=== PATIENT | female | born 2000 | race Two or more races ===

== ENCOUNTER 2021-10-14 20:45 | Emergency (ER) | payer OTHER, SELFPAY ==
--- NOTE | ~2021-10-14 | CT_ITS ---
EXAMINATION: CT HEAD WITHOUT CONTRAST CLINICAL INFORMATION: Headache for 3 days. Lightheaded. COMPARISON: None. TECHNIQUE: Contiguous axial imaging was performed from the skull base to vertex without intravenous contrast. This CT examination was performed using dose optimization techniques as appropriate, variously including the following: * Automated exposure control * Adjustment of mA and/or kV according to patient size (this includes techniques or standardized protocols for targeted exams where dose is matched to indication/reason for exam; i.e. extremities or head) Use of iterative reconstruction technique DLP: 612 mGy-cm. FINDINGS: There is no evidence of acute intracranial hemorrhage or territorial infarction. No abnormal mass effect or midline shift is seen. Angel to white matter differentiation is well preserved. No extra-axial fluid collections are identified. No hydrocephalus. No significant volume loss. There is no abnormal attenuation within the brain parenchyma. The osseous structures and soft tissues are normal. The mastoid air cells and visualized portions of the paranasal sinuses are well aerated. CT/CT head/brain wo con IMPRESSION: No acute intracranial pathology.
[2021-10-14 22:02] VITALS: BP 112/74; PULSE 70; RESP 18; TEMP 37; O2SAT 99; BMI 33.0
--- NOTE | 2021-10-15 01:13 | ED.HA ---
HPI - Headache General Chief Complaint: Headache Stated Complaint: migraine Time Seen by Provider: 10/15/21 00:28 Source: patient Mode of arrival: ambulatory History of Present Illness HPI Narrative: 21-year-old female with no significant past medical history presenting to the ED complaining of headache since waking yesterday morning with associated nausea, intermittent lightheadedness, and photophobia. Denies headache being maximal at onset. describes headache as pressure behind bilateral eyes. Denies vision change/ loss, vomiting, diarrhea, CP/ SOB, numbness/ tingling/weakness has been taking ibuprofen without relief MD elicited complaint: headache Onset (ago): day(s) Related Data Previous Rx's Medication Instructions Recorded [id number] 1 cap PO Q4-6H PRN #14 cap 10/15/21 50 mg-300 mg-40 mg capsule (Fioricet) Allergies Allergy/AdvReac Type Severity Reaction Status Date / Time No Known Allergies Allergy Verified 10/14/21 22:01 Review of Systems Review of Systems: Constitutional: No Fever, No Chills, No Fatigue, No Malaise ENT/Mouth: No Ear Pain, No Nasal Congestion, No Sinus Pain, No Hoarseness, No sore throat, No Rhinorrhea, No Swallowing Difficulty Eyes: No Eye Pain, No Swelling, No Redness, No Vision Changes, + photophobia Cardiovascular: No Chest Pain, No SOB, No Edema, No Palpitations Respiratory: No Cough, No Sputum, No Dyspnea Gastrointestinal: + Nausea, No Vomiting, No Diarrhea, No Constipation, No Abdominal pain Genitourinary: No Dysuria, No Urinary Frequency, No Hematuria Musculoskeletal: No joint pain, No Myalgias, No Joint Swelling Skin: No Skin Lesions, No rash Neuro: No Weakness, No Numbness, No Paresthesias, No Loss of Consciousness, + lightheaded, + Headache Yes all other systems are reviewed and are negative Neurologic: Denies Abnormal speech present [facility] [place] Past Medical History Attestation statement: The following information was validated with the patient. Social History Social History Advance Directives: No Advance Directives Information Provided: No Physical Exam Vital Signs: Vital Signs: Last Vital Signs Temp 98.6 F 10/14/21 22:02 Pulse 70 05/13/22 22:02 Resp 18 10/14/21 22:02 BP 112/74 10/14/21 22:02 Pulse Ox 99 10/14/21 22:02 BMI result Body Mass Index 33.0 Const: General: cooperative, healthy appearing, no acute distress, alert and awake Orientation/consciousness: patient oriented x3 Limitations: no limitations HEENT: Head: Yes normal to inspection and Yes atraumatic Ears: hearing grossly normal bilaterally General nose exam: Normal external nose present Face and sinus: Yes normal facial exam Mouth: Normal oral and palatal mucosa present Throat: Yes posterior oropharynx normal Eyes: General: appearance normal, both eyes and all related structures Pupils: Equal, round and reactive pupils present EOM: EOMs intact bilaterally Neck: Neck: Yes normal visual inspection, Yes no meningeal signs and Yes supple Resp: Effort & Inspection: normal respiratory effort and no respiratory distress Auscultation: clear to auscultation bilaterally Cardio: Rate: regular rate Heart sounds: S1 normal heart sound present and S2 normal heart sound present GI: Inspection: Yes normal to inspection : General: Yes no CVA tenderness Back/Spine/Pelvis: Back: no CVA tenderness Skin: Rashes: no rashes Wounds: no wounds Neuro: General: patient oriented x3, gait normal, tone normal, moves all extremities, no meningeal signs, no focal motor deficits and CN's II-XI intact bilaterally Cranial nerves: Yes CN's II-XII intact bilaterally, Yes Equal, round and reactive pupils present and Yes Bilaterally intact EOM present Cognition (Neuro): normal cognition Speech: No Abnormal speech present Gait exam (Neuro): Normal gait present Motor exam (neuro): 5/5 motor strength present throughout Extrem: General: Yes normal to inspection Course Course Course Narrative: CT head/brain wo con IMPRESSION: No acute intracranial pathology. >> results discussed with patient and mother. Patient reports symptomatic improvement after p.o. Reglan, PO Fioricet, and Benadryl Discussed worrisome signs and symptoms and strict return precautions and needed close follow-up with PCP MDM - Headache MDM Narrative Medical decision making narrative: 21-year-old female with no significant past medical history presenting to the ED complaining of headache since waking yesterday morning with associated nausea, intermittent lightheadedness, and photophobia. on exam vital signs stable, NAD/ nontoxic appearing, no focal neuro deficits, ambulating with steady gait. Concern for migraine headache vs tension headache. Low concern for SAH/ICH, CVT or meningitis Plan: Symptomatic treatment. Mother requesting brain MRI, discussed that this cannot be obtained, now requesting head CT > will obtain per patient request Differential Diagnosis Differential diagnosis: Likely migraine, tension headache and headache Medical Records Attestation: I reviewed the patient's medical records. Lab Data Attestation: I reviewed the patient's lab results. Discharge Plan Discharge Clinical Impression: Migraine Patient Disposition: Home, Self-Care Instructions: Migraine Headache (ED) Additional Instructions: your head CT was unremarkable Fioricet is A headache medication, take as needed. Please follow-up with her doctor you may continues to take ibuprofen as needed. If headache changes, becomes worse or unbearable, vision change or loss, or weakness please return to the emergency department. Rest. Stay hydrated. Prescriptions: New [id number]-[id number] [Fioricet] 50-300-40 mg capsule 1 cap PO Q4-6H PRN (Reason: headache) Qty: 14 0RF Referrals: Physician,Unknown J [Primary Care Provider] -
[2021-10-15] MEDS: diphenhydrAMINE HCL 25 MG TABLET 12.5 MG PO (01:15)
[2021-10-15] MEDS: Butalb/Acetamin/Caff 50/325/40 TABLET 1 TAB PO (01:16)
[2021-10-15] MEDS: Metoclopramide HCl 10 MG TABLET PO (01:16)
[2021-10-15 01:35] VITALS: BP 113/73; PULSE 65; RESP 14; O2SAT 99
== END 2021-10-15 02:19 | disposition home or self-care (01) ==
PROVIDERS: Emergency Provider Internal Medicine
DX: G43.009 Migraine without aura, not intractable, without status migrainosus (principal)
CPT/HCPCS: 70450; 99282; 99284; Q0163